=== PATIENT | female | born 1950 | race Caucasian/White ===

== ENCOUNTER 2016-11-29 09:41 | Day surgery (SDC) | payer MEDICARE, OTHER ==
[~2016-11-29] VITALS: Ht 160 cm; Wt 130.5 kg
[~2016-11-29 09:41] MED LIST: ADVAIR 500/501 DISK INH; ASPIRIN EC81 MG PO; BYDUREON INJ; ELAVIL10 MG PO; GLIMEPIRIDE1 MG PO; K-TAB10 MEQ PO; KOMBIGLYZE XR1 EAC1 PO; LASIX40 MG PO; MOTRIN800 MG PO; RYTHMOL150 MG PO; ULTRAM50 MG PO; ZOCOR40 MG PO
[2016-11-29] MEDS ORDERED: LINZESS145 MCG PO (11:17)
[2016-11-29 11:25] LABS: HEMATOCRIT 44.8 % (36.0-48.0); HEMOGLOBIN 14.7 g/dL (12-16); MCH 31.4 pg (26.0-34.0); MCHC 32.8 g/dL (31.0-37.0); MCV 95.7 fL (80.0-100.0); MEAN PLATELET VOLUME 10.2 fL (7.4-10.4); RBC 4.68 10x6/uL (4.00-5.40); RDW 14.3 % (11.5-14.5); WBC 9.5 10x3/uL (4.8-10.8)
[2016-11-29 11:32] VITALS: BP 141/83; Ht 160 cm; Wt 130.5 kg
[2016-11-29 11:42] LABS: CALC OSMOLALITY 283 mosm/kg (275-300); CALCIUM 9.3 mg/dL (8.5-10.1); CARBON DIOXIDE 32.2 mmol/L (21.0-32.0); CHLORIDE - SERUM 101 mmol/L (98-107); CREATININE - SERUM 0.8 mg/dL (0.6-1.3); SODIUM 141 mmol/L (136-145); UREA NITROGEN 9 mg/dL (7-18); eGFR NON AFRICAN AMERICAN 77 mL/min (90-120)
[2016-11-29 12:00] LABS: GLUCOSE 164 mg/dL (74-106)
--- NOTE | 2016-11-29 14:17 | NUR ---
1330-RECD TO ROOM FROM GI LAB. ALERT. DR BOLTON HERE. 1335-FULL LIQUIDS SERVED. 33443-RQ D/C AND D/C INSTRUCTIONS REVIEWED. 1415-D/C HOME VIA WHEELCHAIR WITH SPOUSE.
--- NOTE | 2016-12-01 19:32 | OP ---
PATIENT NAME: BRENDA CARRILLO MEDICAL RECORD: [id number] :54 LOCATION:[facility] ADMISSION DATE: SURGEON: HOA BOLTON DO DATE OF OPERATION: 11/29/2016 PROCEDURE: Colonoscopy. INDICATIONS FOR PROCEDURE: Chronic constipation, diverticular disease, history of colon polyps. SCOPE: Olympus video pediatric colonoscope. MEDICATIONS: Propofol 340 mg IV per anesthesia. Withdrawal time 10 minutes. ESTIMATED BLOOD LOSS: None. COMPLICATIONS: None. FINDINGS: Informed consent was given. The patient was made comfortable with the above medication. After reaching an adequate level of sedation by slow IV push, the patient was placed on her left side. A digital rectal examination was performed, and was normal. The endoscope was then advanced under direct visualization through the rectum to the cecum, with visualization of the appendiceal orifice and ileocecal valve. The endoscope was then slowly withdrawn and the mucosa was carefully examined. There was evidence of diverticulosis of mild severity in the sigmoid colon. Retroflexion was performed in the rectum with visualization of small nonbleeding internal hemorrhoids. There was also a single angioectasias/AVM localized in the ascending colon, which was not bleeding and showed no bleeding stigmata. The endoscope is withdrawn from the patient. The patient tolerated the procedure well and there were no complications. IMPRESSIONS: 1. Mild diverticulosis of the sigmoid colon. 2. Small nonbleeding internal hemorrhoids. 3. A single angioectasias/AVM in the ascending colon, which was not bleeding and showed no bleeding stigmata. PLAN AND RECOMMENDATIONS: 1. Discharge home when recovery parameters are met. 2. High fiber diet. 3. Continue current medications. 4. Recall colonoscopy in 5-7 years. 5. Okay to use MiraLax as needed for constipation. 6. Follow up in GI clinic as needed. TRANSINT:[id number] Voice Confirmation ID: [id number] DOCUMENT ID: [id number] OPERATIVE REPORT [id number] BRENDA CARRILLO HOA BOLTON DO at 1930 CC: [id number] DICTATION DATE: 11/29/16 1335 EQUIPMENT OPERATOR WAREHOUSE: 11/29/16 [address] [facility] 11/29/16 [place] [address]
== END 2016-11-29 14:15 | disposition home or self-care (01) ==
LOC: D.OPS 09:41
PROVIDERS: Anesthesiology
DX: Z86.010 Personal history of colon polyps (principal); K59.00 Constipation, unspecified; K64.8 Other hemorrhoids; K57.90 Diverticulosis of intestine, part unspecified, without perforation or abscess without bleeding; E11.9 Type 2 diabetes mellitus without complications; J44.9 Chronic obstructive pulmonary disease, unspecified; G47.30 Sleep apnea, unspecified; Z01.812 Encounter for preprocedural laboratory examination